=== PATIENT | female | born 2000 | race Caucasian/White ===

== ENCOUNTER 2019-08-13 01:38 | Emergency (ER) | payer MEDICAID ==
[~2019-08-13] VITALS: Ht 167.6 cm; Wt 124.7 kg
[2019-08-13 03:01] VITALS: BP 161/81
[2019-08-13 03:24] LABS: BASO # 0.1 x10^3/uL (0.0-0.2); BASO % 1 % (0-3); EOS # 1.1 x10^3/uL (0.0-0.7); EOS % 9 % (0-3); HEMATOCRIT 39.2 % (36.0-47.0); HEMOGLOBIN 13.2 g/dL (12.0-15.5); LYMPH # 3.8 x10^3/uL (1.0-4.8); LYMPH % 33 % (24-48); MEAN CORPUSCULAR HEMOGLOBIN 28 pg (25-35); MEAN CORPUSCULAR HGB CONC 34 g/dL (31-37); MEAN CORPUSCULAR VOLUME 82 fL (79-100); MONO # 0.8 x10^3/uL (0.0-1.1); MONO % 7 % (0-9); NEUT # 5.9 x10^3/uL (1.8-7.7); NEUT % 51 % (31-73); PLATELET COUNT 311 x10^3/uL (140-400); RED CELL DISTRIBUTION WIDTH 14.1 % (11.5-14.5); WHITE BLOOD COUNT 11.7 x10^3/uL (4.0-11.0)
[2019-08-13 03:28] LABS: BILIRUBIN,URINE NEGATIVE (NEG); CLARITY,URINE CLEAR; COLOR,URINE YELLOW; NITRITE,URINE NEGATIVE (NEG); PH,URINE 5.5; PROTEIN,URINE NEGATIVE (NEG-TRACE); UROBILINOGEN,URINE 0.2 mg/dL (0.2 mg/dL)
[2019-08-13 03:33] LABS: CALCIUM 8.7 mg/dL (8.5-10.1); CREATININE 0.7 mg/dL (0.6-1.0); GFR 105.6
[2019-08-13 03:38] LABS: ALBUMIN 3.5 g/dL (3.4-5.0); ALBUMIN/GLOBULIN RATIO 0.9 (1.0-1.7); TOTAL BILIRUBIN 0.4 mg/dL (0.2-1.0); TOTAL PROTEIN 7.6 g/dL (6.4-8.2)
[2019-08-13 03:40] LABS: BACTERIA,URINE FEW /HPF (0-FEW); SQUAMOUS EPITHELIAL CELL,UR FEW /LPF
--- NOTE | 2019-08-13 03:48 | RAD ---
Exam: Ultrasound OB less than 14 weeks Indication: Abdominal pain and Technique: Real-time grayscale and color Doppler images of the pelvis were obtained by the department protective services case worker. Comparisons: None FINDINGS: Uterus measures 9.4 x 5.3 x 3.6 cm. Endometrium measures 1.3 cm in thickness. Right ovary measures 2.2 x 1.9 x 2.0 cm. Left ovary measures 0.4 x 1.2 x 1.9 cm. No free fluid. IMPRESSION: No pole, gestational sac or yolk sac identified. Differential at this point is an early IUP, failed IUP or nonvisualized ectopic. Recommend correlation with serial beta hCG measurements and short-term follow-up ultrasound. Electronically signed by: Brian Carroll MD (08/13/2019 3:45 AM) [facility]
--- NOTE | 2019-08-13 04:12 | PHYS DOC ---
Past Medical History Past Medical History: No Pertinent History Past Surgical History: No Surgical History Alcohol Use: None Drug Use: Marijuana Adult General Chief Complaint Chief Complaint: ABDOMINAL PAIN HPI HPI 19-year-old female presents to the emergency department with complaints of right-sided abdominal pain. Patient states her LMP was approximately 2 months ago however does not know exact date. She denies any nausea, vomitng, fever, headache, visual change. Nothing makes pain worse, nothing makes pain better. States she took test at home which was positive x 2. Patient presented to ER for further evaluation. No vaginal bleeding or discharge appreciated. She denies fever, dysuria Review of Systems Review of Systems Constitutional: Denies fever or chills [] Respiratory: Denies cough or shortness of breath [] Cardiovascular: No additional information not addressed in HPI [] GI: right side abdominal pain, no radiation of pain, no nausea, vomiting, bloody stools or diarrhea [] : Denies dysuria or hematuria [] Musculoskeletal: Denies back pain or joint pain [] Integument: Denies rash or skin lesions [] Neurologic: Denies headache, focal weakness or sensory changes [] Endocrine: Denies polyuria or polydipsia [] All other systems were reviewed and found to be within normal limits, except as documented in this note. Current Medications Current Medications Current Medications Medications (Trade) Dose Ordered Sig/Margarita Start Time Stop Time Status Last Admin Dose Admin Potassium Chloride (Klor-Con) 40 meq 1X ONCE 08/13/19 04:15 08/13/19 04:16 DC 08/13/19 04:24 40 MEQ Allergies Allergies Allergies Coded Allergies Type Severity Reaction Last Updated Verified No Known Drug Allergies 08/13/19 No Physical Exam Physical Exam Constitutional: Well developed, well nourished, no acute distress, non-toxic appearance. [] Cardiovascular:Heart rate regular rhythm, no murmur [] Lungs & Thorax: Bilateral breath sounds clear to auscultation [] Abdomen: Bowel sounds normal, soft, mild tenderness appreciated right side, no masses, no pulsatile masses. [] Skin: Warm, dry, no erythema, no rash. [] Back: No tenderness, no CVA tenderness. [] Extremities: No tenderness, no edema. [] Neurologic: Alert and oriented X 3, normal motor function, normal sensory function, no focal deficits noted. [] Psychologic: Affect normal, judgement normal, mood normal. [] Current Patient Data Vital Signs Vital Signs Date Time Temp Pulse Resp B/P (MAP) Pulse Ox O2 Delivery O2 Flow Rate FiO2 08/13/19 03:01 98.2 96 18 161/81 (107) 96 Room Air 98.2 Lab Values Laboratory Tests Test 08/13/19 01:50 08/13/19 03:10 Urine Collection Type Unknown Urine Color Yellow Urine Clarity Clear Urine pH 5.5 Urine Specific [place] 1.025 Urine Protein Negative mg/dL (NEG-TRACE) Urine Glucose (UA) Negative mg/dL (NEG) Urine Ketones (Stick) Negative mg/dL (NEG) Urine Blood Negative (NEG) Urine Nitrite Negative (NEG) Urine Bilirubin Negative (NEG) Urine Urobilinogen Dipstick 0.2 mg/dL (0.2 mg/dL) Urine Leukocyte Esterase Small (NEG) Urine RBC 1-2 /HPF (0-2) Urine WBC 5-10 /HPF (0-4) Urine Squamous Epithelial Cells Few /LPF Urine Bacteria Few /HPF (0-FEW) White Blood Count 11.7 x10^3/uL (4.0-11.0) H Red Blood Count 4.80 x10^6/uL (3.50-5.40) Hemoglobin 13.2 g/dL (12.0-15.5) Hematocrit 39.2 % (36.0-47.0) Mean Corpuscular Volume 82 fL (79-100) Mean Corpuscular Hemoglobin 28 pg (25-35) Mean Corpuscular Hemoglobin Concent 34 g/dL (31-37) Red Cell Distribution Width 14.1 % (11.5-14.5) Platelet Count 311 x10^3/uL (140-400) Neutrophils (%) (Auto) 51 % (31-73) Lymphocytes (%) (Auto) 33 % (24-48) Monocytes (%) (Auto) 7 % (0-9) Eosinophils (%) (Auto) 9 % (0-3) H Basophils (%) (Auto) 1 % (0-3) Neutrophils # (Auto) 5.9 x10^3/uL (1.8-7.7) Lymphocytes # (Auto) 3.8 x10^3/uL (1.0-4.8) Monocytes # (Auto) 0.8 x10^3/uL (0.0-1.1) Eosinophils # (Auto) 1.1 x10^3/uL (0.0-0.7) H Basophils # (Auto) 0.1 x10^3/uL (0.0-0.2) POC Urine HCG, Qualitative Hcg positive (Negative) Sodium Level 139 mmol/L (136-145) Potassium Level 3.0 mmol/L (3.5-5.1) L Chloride Level 103 mmol/L (98-107) Carbon Dioxide Level 24 mmol/L (21-32) Anion Gap 12 (6-14) Blood Urea Nitrogen 10 mg/dL (7-20) Creatinine 0.7 mg/dL (0.6-1.0) Estimated GFR (Cockcroft-Gault) 105.6 BUN/Creatinine Ratio 14 (6-20) Glucose Level 115 mg/dL (70-99) H Calcium Level 8.7 mg/dL (8.5-10.1) Total Bilirubin 0.4 mg/dL (0.2-1.0) Aspartate Amino Transferase (AST) 12 U/L (15-37) L Alanine Aminotransferase (ALT) 13 U/L (14-59) L Alkaline Phosphatase 76 U/L (46-116) Total Protein 7.6 g/dL (6.4-8.2) Albumin 3.5 g/dL (3.4-5.0) Albumin/Globulin Ratio 0.9 (1.0-1.7) L Laboratory Tests 08/13/19 03:10 Laboratory Tests 08/13/19 03:10 EKG EKG [] Radiology/Procedures Radiology/Procedures [facility] [address] [place] [address] IMAGING REPORT Signed PATIENT: GISEL WELLS ACCOUNT: [id number] : 2000 LOCATION: ER AGE: 19 SEX: F EXAM STATUS: REG ER ORD. PHYSICIAN: REYNA PEDRAZA MD REASON: Abdominal Pain in PROCEDURE: OB TRANSVAG Exam: Ultrasound OB less than 14 weeks Indication: Abdominal pain and Technique: Real-time grayscale and color Doppler images of the pelvis were obtained by the department warp knitting machine operator. Comparisons: None FINDINGS: Uterus measures 9.4 x 5.3 x 3.6 cm. Endometrium measures 1.3 cm in thickness. Right ovary measures 2.2 x 1.9 x 2.0 cm. Left ovary measures 0.4 x 1.2 x 1.9 cm. No free fluid. IMPRESSION: No pole, gestational sac or yolk sac identified. Differential at this point is an early IUP, failed IUP or nonvisualized ectopic. Recommend correlation with serial beta hCG measurements and short-term follow-up ultrasound. Electronically signed by: Brian Epps MD (08/13/2019 3:45 AM) [facility] DICTATED and SIGNED BY: BRIAN EPPS MD DATE: 08/13/19344 [] Course & Med Decision Making Course & Med Decision Making Pertinent Labs and Imaging studies reviewed. (See chart for details) [] 19-year-old female presents to the emergency department with complaints of right-sided abdominal pain. Patient states her LMP was approximately 2 months ago however does not know exact date. She denies any nausea, vomitng, fever, headache, visual change. Nothing makes pain worse, nothing makes pain better. States she took test at home which was positive x 2. Patient presented to ER for further evaluation. No vaginal bleeding or discharge appreciated. She denies fever, dysuria Beta HCG 384 Potassium 3.0 - replaced in the ER US reviewed no evidence of pole at this time, fallopian tubes without findings Recommend follow up with repeat HCG in 48 hours and repeat US Recommend dc home and follow up with OB as outpatient Dragon Disclaimer Dragon Disclaimer This electronic medical record was generated, in whole or in part, using a voice recognition dictation system. Departure Departure Impression: Primary Impression: Abdominal pain in Additional Impression: Hypokalemia Disposition: 01 HOME, SELF-CARE Condition: STABLE Referrals: DENA JUAREZ MD (PCP) Patient Instructions: Abdominal Pain During , Dxdb-[id number] Additional Instructions: Recommend follow up with PCP 3 - 5 days Return to the ER with worsening symptoms, intractable pain, fever, altered mental status Tylenol/Motrin as needed for pain HCG 384 US does not show evidence of IUP or ectopic at this time RECOMMEND FOLLOW UP WITH FLEXO PRESS OPERATOR in 48 HR FOR REPEAT HCG AND US Problem Qualifiers Primary Impression: Abdominal pain in Trimester: unspecified trimester Qualified Codes: O26.899 - Other s pecified related conditions, unspecified trimester; R10.9 - Unspecified abdominal pain REYNA PEDRAZA MD Aug 13, 2019 04:12
[2019-08-13] MEDS: POTASSIUM CHLORIDE 20 MEQ TABLET.ER. PO ONE (04:24)
== END 2019-08-13 04:40 | disposition home or self-care (01) ==
LOC: ER 01:38
DX: O26.891 Other specified pregnancy related conditions, first trimester (principal); R10.9 Unspecified abdominal pain; O99.281 Endocrine, nutritional and metabolic diseases complicating pregnancy, first trimester; E87.6 Hypokalemia; Z3A.00 Weeks of gestation of pregnancy not specified
CPT/HCPCS: 36415; 76817; 80053; 81001; 81025; 84702; 85025; 87086; 99285-25

== ENCOUNTER 2019-08-16 01:22 | Emergency (ER) | payer MEDICAID ==
[~2019-08-16] VITALS: Ht 167.6 cm; Wt 124.7 kg
[2019-08-16 02:35] LABS: BILIRUBIN,URINE NEGATIVE (NEG); CLARITY,URINE CLEAR; COLOR,URINE YELLOW; NITRITE,URINE NEGATIVE (NEG); PROTEIN,URINE NEGATIVE (NEG-TRACE); UROBILINOGEN,URINE 0.2 mg/dL (0.2 mg/dL)
[2019-08-16 02:43] LABS: BACTERIA,URINE MODERATE /HPF (0-FEW); RBC,URINE OCC /HPF (0-2); SQUAMOUS EPITHELIAL CELL,UR MANY /LPF
[2019-08-16 03:15] LABS: BASO # 0.1 x10^3/uL (0.0-0.2); BASO % 1 % (0-3); EOS % 10 % (0-3); HEMATOCRIT 40.4 % (36.0-47.0); HEMOGLOBIN 13.6 g/dL (12.0-15.5); LYMPH # 3.6 x10^3/uL (1.0-4.8); LYMPH % 34 % (24-48); MEAN CORPUSCULAR HEMOGLOBIN 28 pg (25-35); MEAN CORPUSCULAR HGB CONC 34 g/dL (31-37); MEAN CORPUSCULAR VOLUME 82 fL (79-100); MONO # 0.7 x10^3/uL (0.0-1.1); MONO % 7 % (0-9); NEUT # 5.2 x10^3/uL (1.8-7.7); NEUT % 49 % (31-73); PLATELET COUNT 302 x10^3/uL (140-400); RED BLOOD COUNT 4.92 x10^6/uL (3.50-5.40); RED CELL DISTRIBUTION WIDTH 13.9 % (11.5-14.5); WHITE BLOOD COUNT 10.6 x10^3/uL (4.0-11.0)
[2019-08-16 03:30] LABS: CALCIUM 8.6 mg/dL (8.5-10.1); CREATININE 0.7 mg/dL (0.6-1.0); GFR 105.6; POTASSIUM 3.1 mmol/L (3.5-5.1)
[2019-08-16 03:35] LABS: ALBUMIN 3.6 g/dL (3.4-5.0); ALBUMIN/GLOBULIN RATIO 0.9 (1.0-1.7); TOTAL BILIRUBIN 0.3 mg/dL (0.2-1.0); TOTAL PROTEIN 7.6 g/dL (6.4-8.2)
[2019-08-16 04:30] VITALS: BP 138/92
[2019-08-16] MEDS ORDERED: POTASSIUM CHLORIDE 20 MEQ TABLET.ER. PO ONE (05:00)
[2019-08-16] MEDS ORDERED: CEPH-264 PO (05:01)
--- NOTE | 2019-08-16 05:01 | PHYS DOC ---
Past Medical History Past Medical History: Anxiety, Bipolar, Depression Additional Past Medical Histor: OCD, PTSD, MISCARRIAGE, CHEMICAL Past Surgical History: No Surgical History Additional Information: "6 TO 7 CIGS/DAY" Alcohol Use: None Drug Use: Marijuana Adult General Chief Complaint Chief Complaint: ABDOMINAL PAIN IN HPI HPI 19-year-old female presents to the emergency department with complaints of lower abdominal pain, cramping. She is present pain is constant. Denies any vaginal discharge or bleeding. She denies any fever. Patient was seen by me approximate 2 days ago for similar complaints, ultrasound was performed at that time without evidence of intrauterine , hCG was 384 at that time. She follows with her OB as an outpatient lab was drawn however no ultrasound performed. Given her continued pain she presents to the ER for further evaluation. Review of Systems Review of Systems Constitutional: Denies fever or chills [] Respiratory: Denies cough or shortness of breath [] Cardiovascular: No additional information not addressed in HPI [] GI: lower abdominal pain, no nausea, vomiting, bloody stools or diarrhea [] : Denies dysuria or hematuria [] Musculoskeletal: Denies back pain or joint pain [] Neurologic: Denies headache, focal weakness or sensory changes [] All other systems were reviewed and found to be within normal limits, except as documented in this note. Current Medications Current Medications Current Medications Medications (Trade) Dose Ordered Sig/Margarita Start Time Stop Time Status Last Admin Dose Admin Potassium Chloride (Klor-Con) 40 meq 1X ONCE 08/16/19 05:00 08/16/19 05:01 DC 08/16/19 05:04 40 MEQ Allergies Allergies Allergies Coded Allergies Type Severity Reaction Last Updated Verified No Known Drug Allergies 08/13/19 No Physical Exam Physical Exam Constitutional: Well developed, well nourished, no acute distress, non-toxic appearance. [] Cardiovascular:Heart rate regular rhythm, no murmur [] Lungs & Thorax: Bilateral breath sounds clear to auscultation [] Abdomen: Bowel sounds normal, soft, no tenderness to palpation appreciated, no masses, no pulsatile masses. [] Skin: Warm, dry, no erythema, no rash. [] Back: No tenderness, no CVA tenderness. [] Extremities: No tenderness, no edema. [] Neurologic: Alert and oriented X 3, no focal deficits noted. [] Psychologic: Affect normal, judgement normal, mood normal. [] Current Patient Data Vital Signs Vital Signs Date Time Temp Pulse Resp B/P (MAP) Pulse Ox O2 Delivery O2 Flow Rate FiO2 08/16/19 04:30 94 16 138/92 (107) 98 Room Air 08/16/19 02:15 98.2 98.2 Lab Values Laboratory Tests Test 08/16/19 01:47 08/16/19 02:25 08/16/19 03:00 Urine Collection Type Unknown Urine Color Yellow Urine Clarity Clear Urine pH 6.0 Urine Specific [place] >=1.030 Urine Protein Negative mg/dL (NEG-TRACE) Urine Glucose (UA) Negative mg/dL (NEG) Urine Ketones (Stick) Negative mg/dL (NEG) Urine Blood Negative (NEG) Urine Nitrite Negative (NEG) Urine Bilirubin Negative (NEG) Urine Urobilinogen Dipstick 0.2 mg/dL (0.2 mg/dL) Urine Leukocyte Esterase Small (NEG) Urine RBC Occ /HPF (0-2) Urine WBC 11-20 /HPF (0-4) Urine Squamous Epithelial Cells Many /LPF Urine Bacteria Moderate /HPF (0-FEW) Urine Mucus Mod /LPF POC Urine HCG, Qualitative Hcg positive (Negative) White Blood Count 10.6 x10^3/uL (4.0-11.0) Red Blood Count 4.92 x10^6/uL (3.50-5.40) Hemoglobin 13.6 g/dL (12.0-15.5) Hematocrit 40.4 % (36.0-47.0) Mean Corpuscular Volume 82 fL (79-100) Mean Corpuscular Hemoglobin 28 pg (25-35) Mean Corpuscular Hemoglobin Concent 34 g/dL (31-37) Red Cell Distribution Width 13.9 % (11.5-14.5) Platelet Count 302 x10^3/uL (140-400) Neutrophils (%) (Auto) 49 % (31-73) Lymphocytes (%) (Auto) 34 % (24-48) Monocytes (%) (Auto) 7 % (0-9) Eosinophils (%) (Auto) 10 % (0-3) H Basophils (%) (Auto) 1 % (0-3) Neutrophils # (Auto) 5.2 x10^3/uL (1.8-7.7) Lymphocytes # (Auto) 3.6 x10^3/uL (1.0-4.8) Monocytes # (Auto) 0.7 x10^3/uL (0.0-1.1) Eosinophils # (Auto) 1.0 x10^3/uL (0.0-0.7) H Basophils # (Auto) 0.1 x10^3/uL (0.0-0.2) Maternal Serum HCG Beta Subunit 1422 mIU/mL (0-5) H Sodium Level 141 mmol/L (136-145) Potassium Level 3.1 mmol/L (3.5-5.1) L Chloride Level 105 mmol/L (98-107) Carbon Dioxide Level 25 mmol/L (21-32) Anion Gap 11 (6-14) Blood Urea Nitrogen 7 mg/dL (7-20) Creatinine 0.7 mg/dL (0.6-1.0) Estimated GFR (Cockcroft-Gault) 105.6 BUN/Creatinine Ratio 10 (6-20) Glucose Level 102 mg/dL (70-99) H Calcium Level 8.6 mg/dL (8.5-10.1) Total Bilirubin 0.3 mg/dL (0.2-1.0) Aspartate Amino Transferase (AST) 22 U/L (15-37) Alanine Aminotransferase (ALT) 26 U/L (14-59) Alkaline Phosphatase 69 U/L (46-116) Total Protein 7.6 g/dL (6.4-8.2) Albumin 3.6 g/dL (3.4-5.0) Albumin/Globulin Ratio 0.9 (1.0-1.7) L Laboratory Tests 08/16/19 03:00 Laboratory Tests 08/16/19 03:00 EKG EKG [] Radiology/Procedures Radiology/Procedures [facility] [address] [place], [place] [id number] IMAGING REPORT Signed PATIENT: GISEL WELLS ACCOUNT: [id number] : 2000 LOCATION: ER AGE: 19 SEX: F EXAM STATUS: DEP ER ORD. PHYSICIAN: REYNA PEDRAZA MD REASON: + , no confirmed IUP, abdominal pain PROCEDURE: OB <14 WKS W/TV Study: OB <14 WKS W/TV DATE: 08/16/2019 3:30 AM INDICATION: Positive test. Abdominal pain. COMPARISON: 08/13/2019 TECHNIQUE: Transabdominal and transvaginal ultrasonography of the pelvis was performed. Color Doppler and duplex were utilized as appropriate. FINDINGS: The uterus measures 9.2 x 4.9 x 4.3 cm. The cervical length is 3.9 cm. Intrauterine gestational sac is now visualized measuring between 0.41 and 0.45 cm. This corresponds to an estimated gestational age of 5 weeks 1 day. No pole is seen at this time. No yolk sac is well seen. Crescentic region of heterogeneous hypoechogenicity adjacent to the gestational sac measures up to 1.3 x 0.8 x 0.4 cm. Unremarkable size and echotexture of both ovaries which maintained normal Doppler flow. No free fluid seen within the pelvic cul-de-sac. IMPRESSION: 1. A small intrauterine gestational sac is identified with a mean sac diameter corresponding to an estimated gestational age of 5 weeks 1 day. No yolk sac or pole is seen at this time though this is not abnormal given the sac diameter. Ongoing follow-up is recommended. 2. Small perigestational hemorrhage measuring up to 1.3 cm in maximum dimension. 3. Unremarkable ovaries. Electronically signed by: RIVKA BARRIENTOS MD (08/16/2019 5:12 AM) [facility] DICTATED and SIGNED BY: RIVKA BARRIENTOS MD DATE: 08/16/19 0512 [] Course & Med Decision Making Course & Med Decision Making Pertinent Labs and Imaging studies reviewed. (See chart for details) []19-year-old female presents to the emergency department with complaints of lower abdominal pain, cramping. She is present pain is constant. Denies any vaginal discharge or bleeding. She denies any fever. Patient was seen by me approximate 2 days ago for similar complaints, ultrasound was performed at that time without evidence of intrauterine , hCG was 384 at that time. She follows with her OB as an outpatient lab was drawn however no ultrasound performed. Given her continued pain she presents to the ER for further evaluation. Labs reviewed with evidence of hypokalemia and UTI HCG consistent with 5wk 1 day IUP US confirmation consistent with HCG Recommend replace K in ER Recommend Keflex rx upon discharge x 3 days Recommend follow up with PCP/OB as scheduled Return precautions provided Dragon Disclaimer Dragon Disclaimer This electronic medical record was generated, in whole or in part, using a voice recognition dictation system. Departure Departure Impression: Primary Impression: Abdominal pain in Additional Impressions: UTI (urinary tract infection) in in first trimester Hypokalemia Disposition: HOME, SELF-CARE Condition: STABLE Referrals: DENA JUAREZ MD (PCP) Patient Instructions: Abdominal Pain During , Kbee-[id number]-Kkhk, Hypokalemia, - Urinary Tract Infection Additional Instructions: Recommend follow up with PCP 3 - 5 days Return to the ER with worsening symptoms, intractable pain, fever, altered mental status Tylenol/Motrin as needed for pain Take antibiotics as directed Scripts Cephalexin (KEFLEX) 500 Mg Capsule 2 CAP PO Q12HR for 3 Days, #12 CAP Prov: REYNA PEDRAZA MD 08/16/19 Problem Qualifiers Primary Impression: Abdominal pain in Trimester: first trimester Qualified Codes: O26.891 - Other specified related conditions, first trimester; R10.9 - Unspecified abdominal pain REYNA PEDRAZA MD Aug 16, 2019 05:01
--- NOTE | 2019-08-16 05:15 | RAD ---
Study: OB <14 WKS W/TV DATE: 08/16/2019 3:30 AM INDICATION: Positive test. Abdominal pain. COMPARISON: 08/13/2019 TECHNIQUE: Transabdominal and transvaginal ultrasonography of the pelvis was performed. Color Doppler and duplex were utilized as appropriate. FINDINGS: The uterus measures 9.2 x 4.9 x 4.3 cm. The cervical length is 3.9 cm. Intrauterine gestational sac is now visualized measuring between 0.41 and 0.45 cm. This corresponds to an estimated gestational age of 5 weeks 1 day. No pole is seen at this time. No yolk sac is well seen. Crescentic region of heterogeneous hypoechogenicity adjacent to the gestational sac measures up to 1.3 x 0.8 x 0.4 cm. Unremarkable size and echotexture of both ovaries which maintained normal Doppler flow. No free fluid seen within the pelvic cul-de-sac. IMPRESSION: 1. A small intrauterine gestational sac is identified with a mean sac diameter corresponding to an estimated gestational age of 5 weeks 1 day. No yolk sac or pole is seen at this time though this is not abnormal given the sac diameter. Ongoing follow-up is recommended. 2. Small perigestational hemorrhage measuring up to 1.3 cm in maximum dimension. 3. Unremarkable ovaries. Electronically signed by: RIVKA BARRIENTOS MD (08/16/2019 5:12 AM) [facility]
== END 2019-08-16 05:09 | disposition home or self-care (01) ==
LOC: ER 01:22
DX: O23.41 Unspecified infection of urinary tract in pregnancy, first trimester (principal); O99.281 Endocrine, nutritional and metabolic diseases complicating pregnancy, first trimester; E87.6 Hypokalemia; O99.331 Smoking (tobacco) complicating pregnancy, first trimester; Z3A.01 Less than 8 weeks gestation of pregnancy
CPT/HCPCS: 36415; 76801; 76817; 80053; 81001; 81025; 84702; 85025; 87086; 99285

== ENCOUNTER 2020-07-14 01:23 | Emergency (ER) | payer MEDICAID ==
[~2020-07-14] VITALS: Ht 167.6 cm; Wt 122.7 kg
[~2020-07-14 01:23] MED LIST: CEPH-264 PO
[2020-07-14 02:55] LABS: BILIRUBIN,URINE NEGATIVE (NEG); CLARITY,URINE CLEAR; COLOR,URINE YELLOW; NITRITE,URINE NEGATIVE (NEG); PROTEIN,URINE NEGATIVE (NEG-TRACE)
[2020-07-14 03:06] LABS: BACTERIA,URINE MODERATE /HPF (0-FEW); RBC,URINE 0 /HPF (0-2)
[2020-07-14] MEDS ORDERED: ALPRAZolam 0.5 MG TABLET PO ONE (03:15)
[2020-07-14 03:17] VITALS: BP 142/79
--- NOTE | 2020-07-14 03:56 | RAD ---
EXAMINATION: PELVIS CLINICAL HISTORY: Pelvic pain TECHNIQUE: PELVIS Number of Images/Views: 1 COMPARISON: None FINDINGS: Borderline diastasis of the pubic symphysis measuring up to 1 cm. Joint spaces and alignment otherwise maintained. No acute fracture. IUD in place. IMPRESSION: Borderline diastases of the pubic symphysis, nonspecific. Electronically signed by: Kamron Luna DO (07/14/2020 3:53 AM) [facility]
[2020-07-14] MEDS ORDERED: ALPR0.5T PO (04:18)
[2020-07-14] MEDS ORDERED: TRAM-48 PO (04:18)
--- NOTE | 2020-07-14 04:18 | PHYS DOC ---
Past Medical History Past Medical History: Anxiety, Bipolar, Depression Additional Past Medical Histor: OCD, PTSD, MISCARRIAGE, CHEMICAL Past Surgical History: No Surgical History Smoking Status: Current Every Day Smoker Alcohol Use: None Drug Use: Marijuana General Adult EDM: Chief Complaint: ABDOMINAL PAIN HPI: HPI: Patient is a 20 year old female with past medical history anxiety bipolar depression presents with a chief complaint of abdominal pain. Patient states that she has had upper abdominal and lower pelvic pain for approximately 1 month. Patient states pain initially started in her upper abdomen intensified with eating. Patient states her pelvic pain started shortly after placement of her IUD. Patient states her abdominal pain and pelvic pain constant but intensified after eating. After IUD placement patient was seen by her OB and had an ultrasound that confirmed placement. At the time of my exam patient was requesting anxiety medication. Review of Systems: Review of Systems: Constitutional: Denies fever or chills. [] Eyes: Denies change in visual acuity. [] HENT: Denies nasal congestion or sore throat. [] Respiratory: Denies cough or shortness of breath. [] Cardiovascular: Denies chest pain or edema. [] GI: Denies , nausea, vomiting, bloody stools or diarrhea. [Positive abdominal pain] : Denies dysuria. [positive pelvic pain] Musculoskeletal: Denies back pain or joint pain. [] Integument: Denies rash. [] Neurologic: Denies headache, focal weakness or sensory changes. [] Endocrine: Denies polyuria or polydipsia. [] Lymphatic: Denies swollen glands. [] Psychiatric: Denies depression or anxiety. [] Heart Score: Risk Factors: Risk Factors: DM, Current or recent (<one month) smoker, HTN, HLP, family history of CAD, obesity. Risk Scores: Score 0 - 3: 2.5% MACE over next 6 weeks - Discharge Home Score 4 - 6: 20.3% MACE over next 6 weeks - Admit for Clinical Observation Score 7 - 10: 72.7% MACE over next 6 weeks - Early Invasive Strategies Current Medications: Current Medications Medications (Trade) Dose Ordered Sig/Margarita Start Time Stop Time Status Last Admin Dose Admin Alprazolam (Xanax) 1 mg ONCE ONCE 07/14/20 03:15 07/14/20 03:16 DC 07/14/20 03:16 1 MG Allergies: Allergies: Allergies Coded Allergies Type Severity Reaction Last Updated Verified No Known Drug Allergies 08/13/19 No Physical Exam: PE: Constitutional: Well developed, well nourished, no acute distress, non-toxic appearance. [] HENT: Normocephalic, atraumatic, bilateral external ears normal, oropharynx moist, no oral exudates, nose normal. [] Eyes: PERRLA, EOMI, conjunctiva normal, no discharge. [] Neck: Normal range of motion, no tenderness, supple, no stridor. [] Cardiovascular:Heart rate regular rhythm, no murmur [] Lungs & Thorax: Bilateral breath sounds clear to auscultation [] Abdomen: Bowel sounds normal, soft, no tenderness, no masses, no pulsatile masses. [] Skin: Warm, dry, no erythema, no rash. [] Back: No tenderness, no CVA tenderness. [] Extremities: No tenderness, no cyanosis, no clubbing, ROM intact, no edema. [] Neurologic: Alert and oriented X 3, normal motor function, normal sensory function, no focal deficits noted. [] Psychologic: Affect normal, judgement normal, mood normal. [] Current Patient Data: Labs: Laboratory Tests Test 07/14/20 01:36 07/14/20 01:40 Urine Collection Type Unknown Urine Color Yellow Urine Clarity Clear Urine pH 6.0 (<5.0-8.0) Urine Specific [place] 1.025 (1.000-1.030) Urine Protein Negative mg/dL (NEG-TRACE) Urine Glucose (UA) Negative mg/dL (NEG) Urine Ketones (Stick) Negative mg/dL (NEG) Urine Blood Moderate (NEG) Urine Nitrite Negative (NEG) Urine Bilirubin Negative (NEG) Urine Urobilinogen Dipstick 1.0 mg/dL (0.2 mg/dL) Urine Leukocyte Esterase Small (NEG) Urine RBC 0 /HPF (0-2) Urine WBC 5-10 /HPF (0-4) Urine Squamous Epithelial Cells Many /LPF Urine Bacteria Moderate /HPF (0-FEW) Urine Mucus Marked /LPF POC Urine HCG, Qualitative Hcg negative (Negative) Vital Signs: Vital Signs Date Time Temp Pulse Resp B/P (MAP) Pulse Ox O2 Delivery O2 Flow Rate FiO2 07/14/20 03:17 90 20 142/79 (100) 99 Room Air 07/14/20 01:49 97.5 97.5 EKG: EKG: [] Radiology/Procedures: Radiology/Procedures: [] Course & Med Decision Making: Course & Med Decision Making Pertinent Labs and Imaging studies reviewed. (See chart for details) [] Patient was evaluated for chief complaint. Work-up consisted of laboratory analysis and radiologic imaging. Results reviewed and discussed with patient. Patient's anxiety was treated with Xanax with improvement. Patient was dis charged home with prescription anxiety and pain medications. Patient states she has an appointment with her [employer] on Saturday. Dragon Disclaimer: Dragon Disclaimer: This electronic medical record was generated, in whole or in part, using a voice recognition dictation system. Departure Departure Impression: Primary Impression: Abdominal pain Additional Impressions: Pelvic pain Anxiety Disposition: HOME SELF CARE/HOMELESS Condition: STABLE Referrals: DENA JUAREZ MD (PCP) Patient Instructions: Abdominal Pain, Anxiety and Panic Attacks, Pelvic Pain, Female Scripts Tramadol Hcl (ULTRAM) 50 Mg Tablet 1 TAB PO PRN Q6HRS PRN for pain MDD 4 Tablet(s) for 7 Days, #20 TAB 0 Refills Prov: MARISELA DELATORRE DO 07/14/20 Alprazolam (XANAX) 0.5 Mg Tablet 0.5 MG PO PRN Q6HRS PRN for ANXIETY / AGITATION for 10 Days, #14 TAB 0 Refills Prov: MARISELA DELATORRE DO 07/14/20 MARISELA DELATORRE DO Jul 14, 2020 04:18
[2020-07-14] MEDS ORDERED: traMADol 50 MG TABLET PO ONE (04:30)
[2020-07-14] MEDS ORDERED: DICL50TA2 PO (04:45)
== END 2020-07-14 04:50 | disposition home or self-care (01) ==
LOC: ER 01:23
DX: R10.10 Upper abdominal pain, unspecified (principal); R10.30 Lower abdominal pain, unspecified; R10.2 Pelvic and perineal pain; F41.9 Anxiety disorder, unspecified; F31.9 Bipolar disorder, unspecified; F17.200 Nicotine dependence, unspecified, uncomplicated; F43.10 Post-traumatic stress disorder, unspecified
CPT/HCPCS: 72170; 81001; 81025; 87086; 99284